=== PATIENT | male | born 1975 | race Two or more races ===

== ENCOUNTER 2019-06-10 15:42 | Emergency (ER) | payer OTHER ==
[~2019-06-10] VITALS: Ht 177.8 cm; Wt 90.7 kg
[2019-06-10] MEDS ORDERED: NKM (15:53)
[2019-06-10 15:56] VITALS: BP 166/112
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
--- NOTE | 2019-06-10 18:28 | Diagnostic Imaging Report ---
Indication: Back pain Comparison: None Findings: 3 views of the lumbar spine were obtained. No acute fracture or malalignment is identified. Vertebral body heights and disk spaces are well maintained. Posterior elements are unremarkable. Impression: No acute findings.
[2019-06-10] MEDS ORDERED: IBUPROFEN600 MG ORAL (19:02)
[2019-06-10] MEDS ORDERED: ROBAXIN-750750 MG PO (19:02)
[2019-06-10 19:11] VITALS: BP 135/66
--- NOTE | 2019-06-10 19:11 | NUR ---
ED Nurse Note: pt cleared to be d/c per er provider, pt discharge and aftercare instruction provided w/ prescription pt education done via discussion and handout, pt advised to follow up with pcp or return to ed if changes in condition, vss, ambulatory w/ steady gait, left w/ all belongings.
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
== END 2019-06-10 19:18 | disposition home or self-care (01) ==
LOC: EMR 16:03
DX: S30.0XXA Contusion of lower back and pelvis, initial encounter (principal); M53.3 Sacrococcygeal disorders, not elsewhere classified; V29.40XA Motorcycle driver injured in collision with unspecified motor vehicles in traffic accident, initial encounter; Y92.410 Unspecified street and highway as the place of occurrence of the external cause
CPT/HCPCS: 72020; 72170; 99284